=== PATIENT | female | born 1960 | race Caucasian/White ===

== ENCOUNTER 2018-11-28 10:02 | Day surgery (SDC) | payer OTHER ==
[~2018-11-28 10:02] MED LIST: Acetaminophen 500 MG Tab PO ONE; Gabapentin 300 MG Cap PO ONE; Lactated Ringers 1,000 ML IV SCH; Scopolamine 1.5 MG Transdermal Patch TRDERM ONE
[2018-11-28] MEDS ORDERED: Citric Acid/Sodium Citrate Solution 30 ML Cup PO ONE (10:03)
[2018-11-28] MEDS ORDERED: Ondansetron 4 MG/2 ML SDV IVPUSH ONE (10:03)
[2018-11-28] MEDS ORDERED: Propofol 200 MG/20 ML SDV IV ONE (10:03)
[2018-11-28] MEDS ORDERED: ePHEDrine 50 MG/ML SDV IV ONE (10:03)
[2018-11-28] MEDS ORDERED: fentaNYL 100 MCG/2 ML SDV IV ONE (10:03)
[2018-11-28] MEDS ORDERED: Lidocaine 1% PF 2 ML SDV INJECT ONE (10:03)
[2018-11-28] MEDS ORDERED: Ropivacaine 0.5% 5 MG/ML 30 ML SDV INJECT ONE (10:03)
[2018-11-28] MEDS ORDERED: Lactated Ringers 1,000 ML IV ONE (10:03)
[2018-11-28] MEDS ORDERED: Midazolam 1 MG/ML 2 ML SDV IV ONE (10:03)
[2018-11-28] MEDS ORDERED: Famotidine/Normal Saline 20 MG/50 ML BAG IV ONE (10:03)
[2018-11-28] MEDS ORDERED: MEPERIDINE 100 MG/ML IV ONE (10:03)
[2018-11-28] MEDS ORDERED: Ropivacaine 49.25 ML, Ketorolac 30 MG, EPINEPHrine 0.5 MG, cloNIDine 80 MCG, Sodium Chl... INJECT SCH ×5 (11:00)
[2018-11-28] MEDS ORDERED: ceFAZolin 2 GM in Premix Bag 1 BAG IV ONE (11:00)
[2018-11-28] MEDS ORDERED: fentaNYL 100 MCG/2 ML SDV IVPUSH ONE (11:10)
[2018-11-28] MEDS ORDERED: Tranexamic Acid 3,000 MG, Sodium Chloride 0.9% 100 ML IRR ONE ×2 (12:15)
[2018-11-28] MEDS ORDERED: diphenhydrAMINE 50 MG/ML SDV IVPUSH PRN (16:18)
[2018-11-28] MEDS ORDERED: Bisacodyl 5 MG Tab PO PRN (16:18)
[2018-11-28] MEDS ORDERED: Magnesium Hydroxide 400 MG/5 ML Susp 30 ML Cup PO PRN (16:18)
[2018-11-28] MEDS ORDERED: Sennosides 8.6 MG Tab PO PRN (16:18)
[2018-11-28] MEDS ORDERED: Naloxone 0.4 MG/ML SDV IVPUSH PRN (16:18)
[2018-11-28] MEDS ORDERED: Ondansetron 4 MG/2 ML SDV IVPUSH PRN (16:18)
[2018-11-28] MEDS ORDERED: Docusate Sodium 100 MG Cap PO PRN (16:18)
[2018-11-28] MEDS ORDERED: traMADol 50 MG Tab PO PRN (16:18)
[2018-11-28] MEDS ORDERED: Zolpidem 5 MG Tab PO PRN (16:18)
[2018-11-28] MEDS ORDERED: Alum Hydroxide/Mag Hydroxide 15 ML, Lidocaine 2% 15 ML PO ONE ×2 (16:42)
[2018-11-28] MEDS ORDERED: Ketorolac 30 MG/ML SDV IVPUSH SCH (17:00)
--- NOTE | 2018-11-28 17:40 | OR ---
DATE OF OPERATION: 11/28/2018 SURGEON: Tim Elizabeth DO PREOPERATIVE DIAGNOSIS: Left knee primary osteoarthritis. POSTOPERATIVE DIAGNOSIS: Left knee primary osteoarthritis. PROCEDURE: Left knee partial knee arthroplasty. ANESTHESIA: Spinal plus conscious sedation. FLUID: Lactated Ringer's solution. ESTIMATED BLOOD LOSS: 200 mL. COMPLICATIONS: None. SPECIMEN: None. DISCHARGE DISPOSITION: Stable to PACU. INSTRUMENTATION: DePuy [place] partial knee size-4 femur, size-3 tibia, size-3 polyethylene insert. INDICATION: The patient was seen preoperatively in the clinic. She had failed nonoperative treatment in the past. Preoperative imaging confirmed the above- mentioned diagnosis. Risks and benefits of the procedure were explained to the patient. Informed consent was obtained. DETAILS OF PROCEDURE: The patient was seen preoperatively by myself and the Anesthesia staff in the preoperative holding area, where the operating site was marked. She was brought to the operative suite by the Anesthesia staff, where spinal sedation was administered plus conscious sedation. All extremities were found to be well padded. A well-padded tourniquet was placed on the left thigh. The left lower extremity was then prepped and draped in a sterile manner. Time- out was called identifying the correct patient, the correct procedure, the correct site, and that antibiotics had been begun within appropriate period of time. The left lower extremity was exsanguinated. Tourniquet was raised to 300 mmHg and kept up for 38 minutes. At the time of cementing, it was let down. A medial incision was made medial to the superior aspect of the patella down to the medial aspect of the tibial tubercle. Bleeding during the case was controlled with Bovie electrocautery. A medial parapatellar arthrotomy was then made. The infrapatellar fat pad was removed. The anterior portion of the medial meniscus was removed. The medial tibial was skeletonized with the Bovie electrocautery unit. An extramedullary tibial guide was used with 0 to 2 degrees of slope with 2 mm stylus depth. This was pinned into position and then the vertical cut was made in line with the anterior superior iliac spine. The horizontal cut was then made. I then removed the guide and then used an osteotome with the Rj to remove the fragment, which measured a size 3. After this had been performed, I then inserted my 7-mm spacer, which was equal in flexion and extension. I marked the midportion of this in flexion and extension of the distal femur. I then brought out my femur into extension and then placed my distal femoral cutting guide, pinned this into place, and then made my distal femoral cut. After this had been accomplished, I removed my guide again and removed the pins. I then marked the midportion with my spacer and then used a size-4 distal femoral cutting guide. I pinned this into position and made my three distal femoral cuts. I then placed my distal femoral trial component and then placed my spacer, which provided excellent range of motion with stability. I then removed all of my components. I placed my tibial baseplate guide and then used an awl to make my keyhole cut. After this had been accomplished, I checked it with a hockey stick. I then copiously irrigated with saline, applied TXA, and then a dry towel, allowed this to dry. Then, I cemented my components in place, taking great care to make sure that all of my cement was removed posteriorly and then put my final polyethylene component in place. This provided excellent stability throughout range of motion. Range of motion was 0-130 degrees flexion. After this had been accomplished, I then copiously irrigated with saline. I applied Betadine-soaked irrigation and then TXA and then closed the parapatellar arthrotomy with two #5 interrupted Ethibond sutures, followed by #1 STRATAFIX, followed by Betadine irrigation again, followed by #1 STRATAFIX subcutaneously, followed by skin pedro, followed by Betadine-soaked Adaptic, followed by a sterile dressing. The patient was then transferred to the PACU in a stable condition. /[id number] FIDEL/SISSY
[2018-11-28] MEDS: Sodium Chloride 0.9% 10 ML Syringe FLUSH PRN ×2 (20:26→20:33)
[2018-11-28] MEDS: Ketorolac 30 MG/ML SDV IVPUSH SCH (20:28)
[2018-11-29] MEDS: Ketorolac 30 MG/ML SDV IVPUSH SCH (04:13)
[2018-11-29] MEDS: Sodium Chloride 0.9% 10 ML Syringe FLUSH PRN (04:14)
[2018-11-29] MEDS: Acetaminophen/oxyCODONE 325-5 MG Tab PO PRN ×3 (04:15→12:19)
[2018-11-29] MEDS ORDERED: Pantoprazole 40 MG Tab.CR PO SCH (06:00)
--- NOTE | 2018-11-29 08:56 | PCM.SN ---
- Free Text/Narrative Note: ANESTHESIA PAIN SERVICE Date: 11/28/2018 Time: 1637 to 1655 RE: Post Operative Pain Control Pre-Op Dx: Severe DJD Left Knee Post-Op Rx: Left Knee Partial Arthroplasty Procedure: Left Adductor Canal Nerve Block with Ultrasound Guidance The physician requested post operative pain control. Risks / Benefits discussed with the patient including block failure. She agrees and wishes to proceed. This will be done in PACU due to Ultrasound [U/S] availability. Monitors: NIBP, ECG, and SpO2 [see nursing notes for vitals]. Sedation: None [spinal for surgery] She is awake and orientated throughout the procedure. First, I did a preprocedure scan locating the Left Femoral Artery under the Satorius Muscle at a depth of 5 to 6 cm. The area was prepped with a Chlora- Prep swab and allowed to dry. Using U/S guidance, I advanced a 22 G 3.5" pencil point spinal needle X 2 attempts to a good position without problems. With negative aspiration, the first 2 ml's of .5% Naropin tented the muscle and started to surround the artery. No patient complaints noted, so a total of 20 ml's of local was given in divided doses under U/S visualization. Vital signs remained stable. She tolerated this procedure well. See Radiology PAC system for pictures. Thank you for using the service. Gavino Ma CRNA Yoana
[2018-11-29] MEDS ORDERED: Levothyroxine 125 MCG Tab PO SCH (09:00)
[2018-11-29] MEDS ORDERED: Hydrochlorothiazide 25 MG Tab PO SCH (09:00)
[2018-11-29] MEDS ORDERED: Aspirin 325 MG Tab.EC PO SCH (09:00)
--- NOTE | 2018-11-29 11:34 | PCM.DCSUM1 ---
Discharge Summary - Hospital Course HPI Initial Comments: 58 yo female admitted for left pka Diagnosis: Stroke: No - Discharge Data Discharge Date: 11/29/18 Discharge Disposition: Home, Self-Care 01 Condition: Good - Patient Summary/Data Operative Procedure(s) Performed: left pka Complications: none Consults: Consultations 11/28/18 15:00 OT Evaluation and Treatment [CONS] Routine Please Evaluate and Treat. OT Reason for Consult: Strengthening This query below is only for informational purposes and is not editable. Admission Diagnosis/Problem: Arthroplasty of knee PT Evaluation and Treatment [CONS] Routine Please Evaluate and Treat. PT Reason for Consult: Strengthening This query below is only for informational purposes and is not editable. Admission Diagnosis/Problem: Arthroplasty of knee 11/28/18 16:18 Respiratory Care Assess and Treatment [CONS] Routine Comment: Physician Instructions: Post-op Pneumonia Prevention - Patient Instructions Diet: Usual Diet as Tolerated Activity: Apply Ice, As Tolerated, No Strenuous Activities Driving: Do Not Drive Showering/Bathing: May Shower Wound/Incision Care: Keep Operative Site/Wound Site Clean and Dry, Change Dressing Daily Notify Provider of: Fever, Increased Pain, Swelling and Redness, Drainage, Nausea and/or Vomiting - Discharge Plan *PRESCRIPTION DRUG MONITORING PROGRAM REVIEWED*: Yes *COPY OF PRESCRIPTION DRUG MONITORING REPORT IN PATIENT JAKI: No Prescriptions/Med Rec: Acetaminophen/oxyCODONE [Percocet 325-5 MG] 1 tab PO Q6HR #56 tablet Aspirin [Ecotrin] 325 mg PO DAILY #30 tab.ec Home Medications: Home Meds hydroCHLOROthiazide [Hydrochlorothiazide] 25 mg PO DAILY 01/29/14 [History] Levothyroxine [Levothroid] 137 mcg PO DAILY 11/25/18 [History] Vitamin B Complex 1 tab PO DAILY 11/28/18 [History] Acetaminophen/oxyCODONE [Percocet 325-5 MG] 1 tab PO Q6HR #56 tablet 11/29/18 [ Rx] Aspirin [Ecotrin] 325 mg PO DAILY #30 tab.ec 11/29/18 [Rx] Patient Handouts: Total Knee Replacement, Care After, [id number], Fall Prevention in Hospitals, Adult, Community-Acquired Pneumonia, Adult, Venous Thromboembolism Prevention - Discharge Summary/Plan Comment DC Time >30 min.: No - General Info Date of Service: 11/29/18 Functional Status: Reports: Pain Controlled, Tolerating Diet, Ambulating, Urinating - Review of Systems General: Reports: No Symptoms HEENT: Reports: No Symptoms Pulmonary: Reports: No Symptoms Cardiovascular: Reports: No Symptoms Gastrointestinal: Reports: No Symptoms Genitourinary: Reports: No Symptoms Musculoskeletal: Reports: Leg Pain, Joint Pain, Joint Swelling Skin: Reports: No Symptoms Neurological: Reports: No Symptoms Psychiatric: Reports: No Symptoms - Patient Data Vitals - Most Recent: Last Vital Signs Temp 97.7 F 11/29/18 04:00 Pulse 77 11/29/18 04:00 Resp 18 11/29/18 04:00 BP 108/67 11/29/18 04:00 Pulse Ox 100 11/29/18 04:00 Weight - Most Recent: 200 lb I&O - Last 24 hours: Intake & Output 11/28/18 11/29/18 11/29/18 22:59 06:59 14:59 Intake Total 500 200 Output Total 825 550 Balance -325 -350 Lab Results - Last 24 hrs: Laboratory Results - last 24 hr 11/29/18 11/29/18 Range/Units 06:30 06:30 WBC 4.1 L (4.5-12.0) X10-3/uL RBC 3.16 L (3.23-5.20) x10(6)uL Hgb 10.6 L D (11.5-15.5) g/dL Hct 31.9 (30.0-51.3) % MCV 101.1 H (80-96) fL MCH 33.6 (27.7-33.6) pg MCHC 33.3 (32.2-35.4) g/dL RDW 19.7 H (11.5-15.5) % Plt Count 164 (125-369) X10(3)uL MPV 7.9 (7.4-10.4) fL Add Manual Diff Yes Neutrophils % (Manual) 67 (46-82) % Band Neutrophils % 2 (0-6) % Lymphocytes % (Manual) 25 (13-37) % Monocytes % (Manual) 5 (4-12) % Eosinophils % (Manual) 1 (0-5) % Sodium 142 (135-145) mmol/L Potassium 4.1 (3.5-5.3) mmol/L Chloride 104 (100-110) mmol/L Carbon Dioxide 33 H (21-32) mmol/L BUN 14 (7-18) mg/dL Creatinine 0.8 (0.55-1.02) mg/dL Est Cr Clr Drug Dosing 70.01 mL/min Estimated GFR (MDRD) > 60 (>60) BUN/Creatinine Ratio 17.5 (9-20) Glucose 99 (80-116) mg/dL Calcium 8.2 L (8.6-10.2) mg/dL Total Bilirubin 0.7 (0.1-1.3) mg/dL AST 21 (5-25) IU/L ALT 26 (12-36) U/L Alkaline Phosphatase 87 (56-112) IU/L Total Protein 5.9 L (6.0-8.0) g/dL Albumin 3.1 L (3.2-4.6) g/dL Globulin 2.8 g/dL Albumin/Globulin Ratio 1.1 Med Orders - Current: Current Medications Aspirin (Ecotrin) 325 mg PO DAILY [facility] Last Admin: 11/29/18 08:21 Dose: 325 mg Bisacodyl (Dulcolax) 10 mg PO DAILY PRN PRN Reason: Constipation Diphenhydramine HCl (Benadryl) 25 mg IVPUSH Q4H PRN PRN Reason: Itching Docusate Sodium (Colace) 100 mg PO BID PRN PRN Reason: Constipation Hydrochlorothiazide (Hydrochlorothiazide) 25 mg PO DAILY [facility] Last Admin: 11/29/18 08:22 Dose: 25 mg Lactated Ringer's (Ringers, Lactated) 1,000 mls @ 125 mls/hr IV ASDIRECTED [facility] Last Admin: 11/28/18 11:21 Dose: 125 mls/hr Levothyroxine Sodium (Levothroid) 137 mcg PO DAILY@0600 [facility] Last Admin: 11/29/18 05:59 Dose: 137 mcg Magnesium Hydroxide (Milk Of Magnesia) 30 ml PO BID PRN PRN Reason: Constipation Naloxone HCl (Narcan) 0.1 mg IVPUSH ONETIME PRN PRN Reason: Oversedation Ondansetron HCl (Zofran) 4 mg IVPUSH Q4H PRN PRN Reason: Nausea/Vomiting Oxycodone/Acetaminophen (Percocet 325-5 Mg) 2 tab PO Q4H PRN PRN Reason: Pain (moderate 4-6) Last Admin: 11/29/18 08:21 Dose: 2 tab Pantoprazole Sodium (Protonix) 40 mg PO DAILY@0600 [facility] Last Admin: 11/29/18 06:00 Dose: 40 mg Senna (Senna) 8.6 mg PO BID PRN PRN Reason: Constipation Sodium Chloride (Saline Flush) 10 ml FLUSH ASDIRECTED PRN PRN Reason: Keep Vein Open Last Admin: 11/29/18 04:14 Dose: 10 ml Tramadol HCl (Ultram) 100 mg PO Q6H PRN PRN Reason: Pain (mild 1-3) Zolpidem Tartrate (Ambien) 5 mg PO BEDTIME PRN PRN Reason: Sleep Discontinued Medications Acetaminophen (Tylenol Extra Strength) 1,000 mg PO ONETIME ONE Stop: 11/28/18 09:31 Last Admin: 11/28/18 11:28 Dose: 1,000 mg Ropivacaine 49.25 ml/Ketorolac Tromethamine 30 mg/Epinephrine HCl 0.5 mg/ Clonidine HCl 80 mcg/ Sodium Chloride 48.45 ml 0 ml INJECT ASDIRECTED [facility] Last Admin: 11/28/18 15:54 Dose: 100 syringe Tranexamic Acid 3,000 mg/ (Sodium Chloride 100 ml) 0 mg IRR ONETIME ONE Stop: 11/28/18 12:16 Last Admin: 11/28/18 15:41 Dose: 100 irr Al Hydroxide/Mg Hydroxide 15 (ml/ Lidocaine HCl 15 ml) 0 ml PO ONETIME ONE Stop: 11/28/18 16:43 Last Admin: 11/28/18 16:48 Dose: 30 ml Fentanyl (Sublimaze) 100 mcg IVPUSH ONETIME ONE Stop: 11/28/18 11:11 Last Admin: 11/28/18 12:47 Dose: 100 mcg Gabapentin (Neurontin) 300 mg PO ONETIME ONE Stop: 11/28/18 09:31 Last Admin: 11/28/18 11:28 Dose: 300 mg Cefazolin Sodium/Dextrose 2 gm (/ Premix) 50 mls @ 100 mls/hr IV ONETIME ONE Stop: 11/28/18 11:29 Last Admin: 11/28/18 14:32 Dose: 100 mls/hr Ketorolac Tromethamine (Toradol) 30 mg IVPUSH Q8H [facility] Stop: 11/29/18 01:01 Last Admin: 11/28/18 20:18 Dose: Not Given Ketorolac Tromethamine (Toradol) 30 mg IVPUSH Q8H [facility] Stop: 11/29/18 04:01 Last Admin: 11/29/18 04:13 Dose: 30 mg Scopolamine (Transderm-Scop) 1.5 mg TRDERM ONETIME ONE Stop: 11/28/18 09:31 Last Admin: 11/28/18 11:29 Dose: 1.5 mg - Exam General: Reports: Alert, Oriented, Cooperative, No Acute Distress HEENT: Reports: Pupils Equal, Pupils Reactive, EOMI, Mucous Membr. Moist/[place] Neck: Reports: Supple, Trachea Midline Lungs: Reports: Normal Respiratory Effort GI/Abdominal Exam: No Distention Extremities: Joint Swelling, Leg Pain Skin: Reports: Warm, Dry, Intact Wound/Incisions: Reports: Healing Well, Dressing Dry and Intact, No Drainage
== END 2018-11-29 13:30 | disposition home or self-care (01) ==
LOC: FB.SDS 10:02 → FB.MS 17:35 → FB.SDS 11-29 13:30
PROVIDERS: ATTEND Orthopaedic Surgery
DX: M17.12 Unilateral primary osteoarthritis, left knee (principal); I10 Essential (primary) hypertension; E78.5 Hyperlipidemia, unspecified; K21.9 Gastro-esophageal reflux disease without esophagitis; E03.9 Hypothyroidism, unspecified; Z79.82 Long term (current) use of aspirin; Z79.890 Hormone replacement therapy; Z79.899 Other long term (current) drug therapy
CPT/HCPCS: 36415; 73560-LT; 80053; 85025; 86850; 86900; 86901; 97161-GP; 97165-GO; A9270-GY; J0171; J0690; J0735; J1885; J2795; J3010; J7030; J7050; J7120

== ENCOUNTER 2020-08-28 20:20 | Day surgery (SDC) | payer OTHER ==
[2020-08-28] MEDS ORDERED: Ketorolac 30 MG/ML SDV IVPUSH ONE (20:47)
[2020-08-28] MEDS: Sodium Chloride 0.9% 10 ML Syringe FLUSH PRN ×4 (20:50→22:02)
[2020-08-28] MEDS ORDERED: fentaNYL 100 MCG/2 ML SDV IVPUSH ONE ×2 (21:01→21:57)
--- NOTE | 2020-08-28 21:14 | EDM.PDOC ---
ED HPI GENERAL MEDICAL PROBLEM - General Chief Complaint: General Stated Complaint: GROIN PAIN Time Seen by Provider: 08/28/20 21:12 Source of Information: Reports: Patient History Limitations: Reports: No Limitations - History of Present Illness INITIAL COMMENTS - FREE TEXT/NARRATIVE: Vickie has a had a suprapubic mass for 1 week,initially painless,but started with severe pain a few hours ago. Nothing helps. No other systemic symptoms.,s Right Groin Pain Score (Numeric/FACES): 10 - Related Data Allergies Allergy/AdvReac Type Severity Reaction Status Date / Time celecoxib [From Celebrex] Allergy Nausea Verified 11/25/18 14:00 codeine Allergy Cannot Verified 11/25/18 11:49 Remember metoclopramide HCl Allergy Cannot Verified 11/25/18 11:49 [From Reglan] Remember morphine Allergy Cannot Verified 11/25/18 11:49 Remember nitrofurantoin Allergy Cannot Verified 11/25/18 11:49 [From Macrobid] Remember nitrofurantoin Allergy Cannot Verified 01/29/14 18:08 macrocrystalline Remember [From Macrobid] VITAMIN MIXTURE Allergy Unknown Cannot Uncoded 11/25/18 11:50 Remember Home Meds: Home Meds hydroCHLOROthiazide [Hydrochlorothiazide] 25 mg PO DAILY 01/29/14 [History] Levothyroxine [Levothroid] 137 mcg PO DAILY 11/25/18 [History] Vitamin B Complex 1 tab PO DAILY 11/28/18 [History] Acetaminophen/oxyCODONE [Percocet 325-5 MG] 1 tab PO Q6HR #56 tablet 11/29/18 [Rx] Aspirin [Ecotrin EC] 325 mg PO DAILY #30 tab.ec 11/29/18 [Rx] Past Medical History HEENT History: Reports: None Cardiovascular History: Reports: High Cholesterol, Hypertension Respiratory History: Reports: None Gastrointestinal History: Reports: GERD, Irritable Bowel Syndrome Other Gastrointestinal History: ABDOMINAL PAIN; CONSTIPATION Genitourinary History: Reports: None VISE HAND History: Reports: Musculoskeletal History: Reports: Arthritis, Osteoarthritis Other Musculoskeletal History: LEFT TIBILALIS POSTERIOR TENDINITIS; TEAR OF DELTOID LIGAMENT OF LEFT ANKLE Neurological History: Reports: None Psychiatric History: Reports: None Endocrine/Metabolic History: Reports: Hypothyroidism Hematologic History: Reports: None Immunologic History: Reports: None Oncologic (Cancer) History: Reports: None Dermatologic History: Reports: None - Past Surgical History Head Surgeries/Procedures: Reports: None HEENT Surgical History: Reports: None GI Surgical History: Reports: Appendectomy, Cholecystectomy, Colonoscopy, EGD Musculoskeletal Surgical History: Reports: Knee Replacement Social & Family History - Caffeine Use Caffeine Use: Reports: Soda ED ROS GENERAL - Review of Systems Review Of Systems: Comprehensive ROS is negative, except as noted in HPI. ED EXAM, GENERAL - Physical Exam Exam: See Below Exam Limited By: No Limitations General Appearance: Alert Respiratory/Chest: No Respiratory Distress GI/Abdominal: Normal Bowel Sounds, Tender (Suporapubic mass) Course - Vital Signs Text/Narrative:: CT showed an Inguinal Hernia with some obstruction Last Recorded V/S: Last Vital Signs Temp 97.6 F 08/28/20 21:15 Pulse 66 08/28/20 22:03 Resp 16 08/28/20 22:03 BP 127/59 L 08/28/20 22:03 Pulse Ox 100 08/28/20 22:03 - Orders/Labs/Meds Orders: Active Orders 24 hr Category Date Time Status Abdomen Pelvis w Cont [CT] Stat Exams 08/28/20 20:48 Taken Sodium Chloride 0.9% [Saline Flush] Med 08/28/20 20:47 Active 10 ml FLUSH ASDIRECTED PRN Peripheral IV Insertion Adult [OM.PC] Routine Oth 08/28/20 20:47 Ordered Medication Orders Sodium Chloride (Saline Flush) 10 ml FLUSH ASDIRECTED PRN PRN Reason: Keep Vein Open Last Admin: 08/28/20 22:02 Dose: 10 ml Documented by: Admin: 08/28/20 21:03 Dose: 10 ml Documented by: Admin: 08/28/20 20:55 Dose: 10 ml Documented by: Admin: 08/28/20 20:50 Dose: 10 ml Documented by: JEFFREY Labs: Laboratory Tests 08/28/20 08/28/20 08/28/20 Range/Units 21:03 21:03 21:03 WBC 4.0 (3.0-10.3) x10-3/uL RBC 4.46 (3.60-5.20) x10(6)uL Hgb 13.2 (11.4-15.5) g/dL Hct 39.2 (34.2-48.2) % MCV 87.8 (76.7-100.5) fL MCH 29.5 (23.9-33.9) pg MCHC 33.6 (31.9-34.8) g/dL RDW 13.8 (12.3-16.5) % Plt Count 240 (151-488) x10(3)uL MPV 8.5 (7.1-12.4) fL Neut % (Auto) 58.3 (30.8-76.2) % Lymph % (Auto) 31.8 (18.4-52.1) % [place] % (Auto) 7.6 (4.4-15.7) % Eos % (Auto) 1.9 (0.6-8.1) % Baso % (Auto) 0.4 (0.2-1.5) % Neut # (Auto) 2.3 (1.5-6.3) x10-3/uL Lymph # (Auto) 1.3 (1.0-4.4) x10-3/uL [place] # (Auto) 0.3 (0.3-1.0) x10-3/uL Eos # (Auto) 0.1 (0.0-0.8) x10-3/uL Baso # (Auto) 0.0 (0.0-0.1) x10-3/uL Sodium 140 (135-145) mmol/L Potassium 3.3 L (3.5-5.3) mmol/L Chloride 101 (100-110) mmol/L Carbon Dioxide 31 (21-32) mmol/L BUN 16 (7-18) mg/dL Creatinine 0.8 (0.55-1.02) mg/dL Est Cr Clr Drug Dosing 65.61 mL/min Estimated GFR (MDRD) > 60 (>60) BUN/Creatinine Ratio 20.0 (9-20) Glucose 106 (80-116) mg/dL Calcium 9.3 (8.6-10.2) mg/dL C-Reactive Protein 0.2 L (0.5-0.9) mg/dL Meds: Medications Generic Name Dose Route Start Last Admin Trade Name Freq PRN Reason Stop Dose Admin Sodium Chloride 10 ml 08/28/20 20:47 08/28/20 22:02 Saline Flush FLUSH 10 ml ASDIRECTED PRN Administration Keep Vein Open Discontinued Medications Generic Name Dose Route Start Last Admin Trade Name Nellie PRN Reason Stop Dose Admin Fentanyl 100 mcg 08/28/20 21:01 08/28/20 21:03 Sublimaze IVPUSH 08/28/20 21:02 100 mcg ONETIME ONE Administration Fentanyl 100 mcg 08/28/20 21:57 08/28/20 22:02 Sublimaze IVPUSH 08/28/20 21:58 100 mcg ONETIME ONE Administration Iopamidol 100 ml 08/28/20 21:35 08/28/20 21:54 Isovue-370 (76%) IV 08/28/20 21:36 100 ml . DIRECTED ONE Administration Ketorolac Tromethamine 30 mg 08/28/20 20:47 08/28/20 20:54 Toradol IVPUSH 08/28/20 20:48 30 mg ONETIME ONE Administration Departure - Departure Time of Disposition: 23:01 Disposition: Still A Patient 30 Clinical Impression: Suprapubic pain - Discharge Information Referrals: Loraine Strickland [employer]OC[employer]CHANDISE PLANNER [Primary Care Provider] - Forms: ED Department Discharge Sepsis Event Note (ED) - Evaluation Sepsis Screening Result: No Definite Risk - Focused Exam Vital Signs: Vital Signs Temp Pulse Resp BP Pulse Ox 08/28/20 22:03 66 16 127/59 L 100 08/28/20 21:15 97.6 F 60 16 114/44 L 100 08/28/20 20:27 97.4 F 58 L 139/72 - Problem List & Annotations (1) Inguinal hernia of right side with obstruction SNOMED Code(s): 410018250 Code(s): K40.30 - UNIL INGUINAL HERNIA, W OBST, W/O GANGR, NOT SPCF RECUR Status: Acute Current Visit: Yes (2) Suprapubic abscess SNOMED Code(s): 90651362766002630 Code(s): L02.219 - CUTANEOUS ABSCESS OF TRUNK, UNSPECIFIED Status: Acute Current Visit: Yes (3) Suprapubic pain SNOMED Code(s): 739137720 Code(s): R10.2 - PELVIC AND PERINEAL PAIN Status: Acute Current Visit: Yes - Problem List Review Problem List Initiated/Reviewed/Updated: Yes - My Orders Last 24 Hours: My Active Orders 08/28/20 20:47 Sodium Chloride 0.9% [Saline Flush] 10 ml FLUSH ASDIRECTED PRN Peripheral IV Insertion Adult [OM.PC] Routine 08/28/20 20:48 Abdomen Pelvis w Cont [CT] Stat - Assessment/Plan Last 24 Hours: My Active Orders 08/28/20 20:47 Sodium Chloride 0.9% [Saline Flush] 10 ml FLUSH ASDIRECTED PRN Peripheral IV Insertion Adult [OM.PC] Routine 08/28/20 20:48 Abdomen Pelvis w Cont [CT] Stat Plan: Inguinal Hernia.I called Dr De Jesus
[2020-08-28] MEDS ORDERED: Iopamidol 755 Mg/ML 100 ML Bottle IV ONE (21:35)
[2020-08-28] MEDS ORDERED: Acetaminophen/oxyCODONE 325-5 MG Tab PO ONE (23:23)
[2020-08-28] MEDS ORDERED: Lidocaine 2% 5 ML SDV IV ONE (23:23)
[2020-08-28] MEDS ORDERED: Succinylcholine 200 MG/10 ML MDV IV ONE (23:23)
[2020-08-28] MEDS ORDERED: HYDROmorphone 2 MG/ML SDV IV ONE (23:23)
[2020-08-28] MEDS ORDERED: Acetaminophen 1,000 MG/100 ML Infusion Bottle Premix IV ONE (23:23)
[2020-08-28] MEDS ORDERED: Glycopyrrolate 0.2 MG/ML 5 ML MDV IV ONE (23:23)
[2020-08-28] MEDS ORDERED: Rocuronium 50 MG/5 ML Vial IV ONE (23:23)
[2020-08-28] MEDS ORDERED: ceFAZolin 1 GM Vial IV ONE (23:23)
[2020-08-28] MEDS ORDERED: Lactated Ringers 1,000 ML IV ONE (23:23)
[2020-08-28] MEDS ORDERED: Ondansetron 4 MG/2 ML SDV IVPUSH ONE (23:23)
[2020-08-28] MEDS ORDERED: Dexamethasone 4 MG/ML 5 ML MDV IVPUSH ONE (23:23)
[2020-08-28] MEDS ORDERED: fentaNYL 100 MCG/2 ML SDV IV ONE (23:23)
[2020-08-28] MEDS ORDERED: Neostigmine Methylsulfate 10 MG/10 ML MDV IVPUSH ONE (23:23)
[2020-08-28] MEDS ORDERED: Propofol 200 MG/20 ML SDV IV ONE (23:23)
[2020-08-28] MEDS ORDERED: Midazolam 1 MG/ML 2 ML SDV IV ONE ×2 (23:23)
[2020-08-28] MEDS ORDERED: Lactated Ringers 1,000 ML IV SCH (23:50)
[2020-08-29] MEDS ORDERED: Bupivacaine 0.5% 30 ML SDV INJECT ONE (00:53)
[2020-08-29] MEDS ORDERED: ceFAZolin 1 GM Vial ONE (00:54)
--- NOTE | 2020-08-29 01:23 | HP ---
ADMISSION DATE: 08/28/2020 HISTORY OF PRESENT ILLNESS: This 60-[facility] sudden onset of right groin pain. This developed severely at approximately 1900 hours and persisted, so she presented here. She was noted to have tenderness in the right groin along with palpable mass. A CT scan was performed which showed evidence of a right inguinal hernia with small bowel incarcerated in it. The patient had somewhat similar episode about a week ago, but the pain went away after 1 to 2 hours. She has not known of a definite hernia in the groin before. She did note that she was physically active today, although does not recall lifting anything unusually heavy. She has had some nausea associated with this pain, but no vomiting. PAST MEDICAL HISTORY: Shows previous bilateral knee replacements as well as left ankle surgery. She has also had previous cholecystectomy. CURRENT MEDICATIONS: Include; 1. Levothyroxine. 2. Daily aspirin. ALLERGIES: She lists allergies of Celebrex, codeine, Reglan, morphine, and nitrofurantoin. SOCIAL HISTORY: She does not smoke. The patient notes that the patient is and lives in the [facility]. FAMILY HISTORY: Negative for known anesthetic complications or bleeding disorders. REVIEW OF SYSTEMS: Identifies that the patient has recently been feeling well. She denies any symptoms of headache, cough, sore throat, or change in taste. She has been dieting for the past several months and states that she has lost 60 pounds as a result of this. This was done to relieve pressure on her lower extremity joints and she also states that she has been doing a lot of walking on a regular basis over the past few months. Bowel function is generally satisfactory. She has not had any chest pain or palpitations. She does have some chronic swelling in the left ankle, but no recent change in this. PHYSICAL EXAMINATION: VITAL SIGNS: Weight is 172 pounds, temperature is 97.6, pulse 66, blood pressure is 127/59. GENERAL: The patient is alert, adult female. She is in no acute distress, although does note significant pain in the right groin. HEENT: Her head is normocephalic. There is no scleral icterus. No cervical masses or cervical lymphadenopathy is noted. HEART: Regular without murmur. LUNGS: Clear. Breath sounds are equal. There is no wheezing. ABDOMEN: Currently soft. There is no palpable mass in the abdomen. No abdominal tenderness or distention is noted. No hepatic or splenic enlargement noted. In the right groin, there is noted medially just near the pubic tubercle, a soft tissue mass which is small to medium size. This is exquisitely tender. No masses noted in the left groin. EXTREMITIES: No calf induration or tenderness. There is 1+ left ankle edema. NEUROLOGIC: The patient is alert. Does not demonstrate any lateralizing weakness. IMPRESSION: 1. Incarcerated right inguinal hernia. 2. History of hypothyroidism. RECOMMENDATIONS: Advised proceeding with urgent right groin exploration with reduction and repair of right inguinal hernia. Reviewed with the patient the proposed operative procedure. Risks and possible complications discussed, possible bowel involvement also reviewed. The patient's questions were answered. She agrees to proceed. This will be scheduled on an urgent basis at this time. /[id number] NINI/SISSY CARVAJAL
[2020-08-29] MEDS ORDERED: fentaNYL 100 MCG/2 ML SDV IVPUSH PRN (01:47)
[2020-08-29] MEDS ORDERED: Ondansetron 4 MG/2 ML SDV IVPUSH PRN (01:47)
--- NOTE | 2020-08-29 01:47 | PCM.OPNOTE ---
- General Post-Op/Procedure Note Date of Surgery/Procedure: 08/29/20 Operative Procedure(s): Repair Incarcerated Right Inguinal Hernia with Mesh Findings: Moderate sized incarcerated direct right inguinal hernia. Bowel appeared reduced upon inguinal exploration. Floor of inguinal canal otherwise intact. Pre Op Diagnosis: Incarerated Right Inguinal Hernia Post-Op Diagnosis: Same Anesthesia Technique: General ET Tube Primary Surgeon: Ben Renee Pathology: none EBL in mLs: 20 Complications: None Condition: Good
[2020-08-29] MEDS ORDERED: Acetaminophen/oxyCODONE 325-5 MG Tab PO PRN (01:53)
[2020-08-29] MEDS ORDERED: Lactated Ringers 1,000 ML IV SCH (02:00)
[2020-08-29] MEDS ORDERED: Aluminum Hydroxide/Magnesium Hydroxide Susp 30 ML Cup ONE (02:33)
[2020-08-29] MEDS ORDERED: Lidocaine 2% Viscous Solution 15 ML Cup ONE (02:33)
--- NOTE | 2020-08-29 02:38 | OR ---
DATE OF OPERATION: 08/29/2020 SURGEON: Ben Renee MD PREOPERATIVE DIAGNOSIS: Incarcerated right inguinal hernia. POSTOPERATIVE DIAGNOSIS: Incarcerated right inguinal hernia. OPERATION PERFORMED: Repair of incarcerated right inguinal hernia. INDICATIONS FOR SURGERY: This 60-year-old female presented to the emergency room with severe pain and a palpable mass in the right groin. CT scan identified a right inguinal hernia with a loop of small intestine incarcerated within it. She is urgently taken to the operating room for repair. FINDINGS: In the right groin, the patient had a moderate-sized direct inguinal hernia. The bowel appeared to have reduced with the relaxation of anesthesia. The hernia sac wall was somewhat thickened and it was felt prudent to simply reduce the hernia rather than open the hernia sac so that the contents of the hernia were not visualized. The remainder of the floor of the inguinal canal appeared secure. There was no indirect component of the hernia. PROCEDURE IN DETAIL: The patient was taken to the operating room. She was given general endotracheal anesthesia and the right groin was sterilely prepped and draped. A linear right groin incision was made, carried down to the external oblique fascia which was incised to open the external ring. The ilioinguinal nerve was identified and carefully preserved. Exploration of the right inguinal canal was carried out and the round ligament is identified and it is clamped proximally and distally and removed with 0 Vicryl ties being used to control vascular pedicles. Further exploration in the right groin identified the direct hernia sac. This was isolated down to its neck and the remainder of the floor of the inguinal canal examined. Careful palpation of the hernia sac revealed it to be without any bowel contents, but the sac had a somewhat thickened wall, and in order to not cause any injury to other structures such as bladder, the hernia sac is not opened, but simply completely reduced. The defect in the floor of the inguinal canal is then closed with a [id number] 0 Vicryl suture. The entire floor of the inguinal canal was then reinforced by securing a large size keyhole-shaped piece of polypropylene mesh in position over Hesselbach's triangle. The inferior edge of the mesh was secured to the Maurice's ligament medial to the femoral vessels and the shelving portion of inguinal ligament anterior to these vessels with interrupted 0 Prolene. The superior edge of the mesh was secured down to the internal oblique fascia near its fusion with the external oblique fascia also with interrupted 0 Prolene. The ilioinguinal nerve is passed through the keyhole defect and the tails of the mesh were secured to each other with 0 prolene, recreating the internal ring. The tails of the mesh were also trimmed and laid into the space between the internal and external oblique fascia lateral to the internal ring. This created a secure reinforcement of the floor of the inguinal canal. The wound was copiously irrigated with Ancef and saline solution, which had also been used to soak the mesh prior to its placement. External oblique fascial edges were then reapproximated with running 2-0 Vicryl recreating the external ring. The wound was infiltrated with Marcaine and closure was completed by approximating the Madelin's fascia with interrupted 4-0 Vicryl and skin with running 4-0 Vicryl subcuticular stitch. Benzoin and Steri-Strips were applied followed by antibiotic ointment and sterile dressing. The patient was then awakened, extubated, and taken from the operating room in satisfactory condition. ESTIMATED BLOOD LOSS: 20 mL. COMPLICATIONS: None. PROGNOSIS: Good. /[id number] NINI/SISSY
[2020-08-29] MEDS ORDERED: Alum Hydroxide/Mag Hydroxide 15 ML, Lidocaine 2% 15 ML PO ONE ×2 (02:39)
[2020-08-29] MEDS: Aluminum Hydroxide/Magnesium Hydroxide Susp 30 ML Cup PO PRN ×2 (07:38→12:18)
--- NOTE | 2020-08-29 11:17 | PCM.SURGPN ---
- General Info Date of Service: 08/29/20 Date of Surgery/Procedure: 08/29/20 POD#: 0 Post-Op Diagnosis: Incarcerated Right Inguinal Hernia Admission Diagnosis/Problem: Incarcerated right inguinal hernia Functional Status: Reports: Pain Controlled (Has minimal pain at surgical site) - Review of Systems General: Denies: Fever, Chills HEENT: Reports: No Symptoms Pulmonary: Reports: No Symptoms Cardiovascular: Reports: No Symptoms Gastrointestinal: Reports: Other (Has had some epigastric pain post op which she states happens to her after every surgery. This was relieved by Maalox) Genitourinary: Reports: No Symptoms Musculoskeletal: Denies: Leg Pain - Patient Data Vitals - Most Recent: Last Vital Signs Temp 97.5 F 08/29/20 07:36 Pulse 57 L 08/29/20 07:36 Resp 16 08/29/20 07:36 BP 104/56 L 08/29/20 07:36 Pulse Ox 98 08/29/20 07:36 Weight - Most Recent: 177 lb I&O - Last 24 Hours: Intake & Output 08/28/20 08/29/20 08/29/20 22:59 06:59 14:59 Intake Total 650 Balance 650 Lab Results Last 24 Hrs: Laboratory Results - last 24 hr 08/28/20 08/28/20 08/28/20 Range/Units 21:03 21:03 21:03 WBC 4.0 (3.0-10.3) x10-3/uL RBC 4.46 (3.60-5.20) x10(6)uL Hgb 13.2 (11.4-15.5) g/dL Hct 39.2 (34.2-48.2) % MCV 87.8 (76.7-100.5) fL MCH 29.5 (23.9-33.9) pg MCHC 33.6 (31.9-34.8) g/dL RDW 13.8 (12.3-16.5) % Plt Count 240 (151-488) x10(3)uL MPV 8.5 (7.1-12.4) fL Neut % (Auto) 58.3 (30.8-76.2) % Lymph % (Auto) 31.8 (18.4-52.1) % [place] % (Auto) 7.6 (4.4-15.7) % Eos % (Auto) 1.9 (0.6-8.1) % Baso % (Auto) 0.4 (0.2-1.5) % Neut # (Auto) 2.3 (1.5-6.3) x10-3/uL Lymph # (Auto) 1.3 (1.0-4.4) x10-3/uL [place] # (Auto) 0.3 (0.3-1.0) x10-3/uL Eos # (Auto) 0.1 (0.0-0.8) x10-3/uL Baso # (Auto) 0.0 (0.0-0.1) x10-3/uL Sodium 140 (135-145) mmol/L Potassium 3.3 L (3.5-5.3) mmol/L Chloride 101 (100-110) mmol/L Carbon Dioxide 31 (21-32) mmol/L BUN 16 (7-18) mg/dL Creatinine 0.8 (0.55-1.02) mg/dL Est Cr Clr Drug Dosing 65.61 mL/min Estimated GFR (MDRD) > 60 (>60) BUN/Creatinine Ratio 20.0 (9-20) Glucose 106 (80-116) mg/dL Calcium 9.3 (8.6-10.2) mg/dL C-Reactive Protein 0.2 L (0.5-0.9) mg/dL SARS-CoV-2 RNA (SHEY) (NEGATIVE) 08/28/20 Range/Units 23:24 WBC (3.0-10.3) x10-3/uL RBC (3.60-5.20) x10(6)uL Hgb (11.4-15.5) g/dL Hct (34.2-48.2) % MCV (76.7-100.5) fL MCH (23.9-33.9) pg MCHC (31.9-34.8) g/dL RDW (12.3-16.5) % Plt Count (151-488) x10(3)uL MPV (7.1-12.4) fL Neut % (Auto) (30.8-76.2) % Lymph % (Auto) (18.4-52.1) % [place] % (Auto) (4.4-15.7) % Eos % (Auto) (0.6-8.1) % Baso % (Auto) (0.2-1.5) % Neut # (Auto) (1.5-6.3) x10-3/uL Lymph # (Auto) (1.0-4.4) x10-3/uL [place] # (Auto) (0.3-1.0) x10-3/uL Eos # (Auto) (0.0-0.8) x10-3/uL Baso # (Auto) (0.0-0.1) x10-3/uL Sodium (135-145) mmol/L Potassium (3.5-5.3) mmol/L Chloride (100-110) mmol/L Carbon Dioxide (21-32) mmol/L BUN (7-18) mg/dL Creatinine (0.55-1.02) mg/dL Est Cr Clr Drug Dosing mL/min Estimated GFR (MDRD) (>60) BUN/Creatinine Ratio (9-20) Glucose (80-116) mg/dL Calcium (8.6-10.2) mg/dL C-Reactive Protein (0.5-0.9) mg/dL SARS-CoV-2 RNA (SHEY) Negative (NEGATIVE) Med Orders - Current: Current Medications Al Hydroxide/Mg Hydroxide (Mag-Al Susp) 30 ml PO Q2H PRN PRN Reason: Nausea Last Admin: 08/29/20 07:38 Dose: 30 ml Documented by: Fentanyl (Sublimaze) 50 mcg IVPUSH Q1H PRN PRN Reason: Pain (severe 7-10) Lactated Ringer's (Ringers, Lactated) 1,000 mls @ 125 mls/hr IV ASDIRECTED [facility] Last Admin: 08/28/20 23:50 Dose: 125 mls/hr Documented by: Lactated Ringer's (Ringers, Lactated) 1,000 mls @ 100 mls/hr IV ASDIRECTED BATOOL Last Admin: 08/29/20 06:06 Dose: 100 mls/hr Documented by: Levothyroxine Sodium (Levothroid) 137 mcg PO DAILY BATOOL Ondansetron HCl (Zofran) 4 mg IVPUSH Q6H PRN PRN Reason: Nausea/Vomiting Oxycodone/Acetaminophen (Percocet 325-5 Mg) 1 tab PO Q4H PRN PRN Reason: Pain Sodium Chloride (Saline Flush) 10 ml FLUSH ASDIRECTED PRN PRN Reason: Keep Vein Open Last Admin: 08/28/20 22:02 Dose: 10 ml Documented by: Discontinued Medications Al Hydroxide/Mg Hydroxide (Mag-Al Susp) Confirm Administered Dose 30 ml .ROUTE .STK-MED ONE Stop: 08/29/20 02:34 Last Admin: 08/29/20 02:47 Dose: Not Given Documented by: Bupivacaine HCl (Marcaine 0.5%) 30 ml INJECT .STK-MED ONE Stop: 08/29/20 00:54 Last Admin: 08/29/20 00:53 Dose: 30 ml Documented by: Cefazolin Sodium (Ancef) 1 gm .XX .STK-MED ONE Stop: 08/29/20 00:55 Last Admin: 08/29/20 00:54 Dose: 1 gm Documented by: Al Hydroxide/Mg Hydroxide 15 (ml/ Lidocaine HCl 15 ml) 0 ml PO ONETIME ONE Stop: 08/29/20 02:40 Last Admin: 08/29/20 07:09 Dose: Not Given Documented by: Fentanyl (Sublimaze) 100 mcg IVPUSH ONETIME ONE Stop: 08/28/20 21:02 Last Admin: 08/28/20 21:03 Dose: 100 mcg Documented by: Fentanyl (Sublimaze) 100 mcg IVPUSH ONETIME ONE Stop: 08/28/20 21:58 Last Admin: 08/28/20 22:02 Dose: 100 mcg Documented by: Iopamidol (Isovue-370 (76%)) 100 ml IV . DIRECTED ONE Stop: 08/28/20 21:36 Last Admin: 08/28/20 21:54 Dose: 100 ml Documented by: Ketorolac Tromethamine (Toradol) 30 mg IVPUSH ONETIME ONE Stop: 08/28/20 20:48 Last Admin: 08/28/20 20:54 Dose: 30 mg Documented by: Lidocaine HCl (Xylocaine 2% Viscous) Confirm Administered Dose 15 ml .ROUTE .STK-MED ONE Stop: 08/29/20 02:34 Last Admin: 08/29/20 02:47 Dose: Not Given Documented by: - Exam Wound/Incisions: Healing Well, Other (Skin edges clean and well approximated, Minimal drainage). No: Erythema General: Alert, Oriented Lungs: Normal Respiratory Effort GI/Abdominal Exam: Soft, Non-Tender Sepsis Event Note - Evaluation Sepsis Screening Result: No Definite Risk - Focused Exam Vital Signs: Vital Signs Temp Pulse Resp BP Pulse Ox 08/29/20 07:36 97.5 F 57 L 16 104/56 L 98 08/29/20 04:35 56 L 16 109/52 L 99 08/29/20 04:10 98 F 56 L 17 112/52 L 98 08/29/20 03:40 56 L 16 114/52 L 97 08/29/20 03:25 56 L 16 116/56 L 96 08/29/20 03:10 54 L 16 113/52 L 96 08/29/20 02:55 98 F 53 L 16 112/56 L 99 08/29/20 02:48 12 115/54 L 100 08/29/20 02:39 11 L 111/47 L 100 08/29/20 02:31 15 102/52 L 100 08/29/20 02:21 19 126/65 100 08/29/20 02:05 17 120/78 100 08/29/20 01:59 97.5 F 18 119/67 100 08/28/20 23:41 97.9 F 47 L 18 149/69 H 100 - Problem List Review Problem List Initiated/Reviewed/Updated: Yes - My Orders Last 24 Hours: Active Orders 24 hr Category Date Time Status Patient Status [ADT] Routine ADT 08/29/20 01:47 Active Ambulate [RC] ASDIRECTED Care 08/29/20 01:47 Active Oxygen Therapy [RC] PRN Care 08/29/20 01:47 Active RT Incentive Spirometry [RC] Q1HWA Care 08/29/20 01:47 Active Vital Signs [RC] PER UNIT ROUTINE Care 08/29/20 01:47 Active Full Liquid Diet [DIET] Diet 08/29/20 Breakfast Ordered Abdomen Pelvis w Cont [CT] Stat Exams 08/28/20 20:48 Taken Acetaminophen/oxyCODONE [Percocet 325-5 MG] Med 08/29/20 01:53 Active 1 tab PO Q4H PRN Alum Hydroxide/Mag Hydroxide [Mag-Al Susp] Med 08/29/20 07:06 Active 30 ml PO Q2H PRN Lactated Ringers [Ringers, Lactated] 1,000 ml Med 08/28/20 23:50 Active IV ASDIRECTED Lactated Ringers [Ringers, Lactated] 1,000 ml Med 08/29/20 02:00 Active IV ASDIRECTED Levothyroxine [Levothroid] Med 08/29/20 09:00 Active 137 mcg PO DAILY Ondansetron [Zofran] Med 08/29/20 01:47 Active 4 mg IVPUSH Q6H PRN Sodium Chloride 0.9% [Saline Flush] Med 08/28/20 20:47 Active 10 ml FLUSH ASDIRECTED PRN fentaNYL [Sublimaze] Med 08/29/20 01:47 Active 50 mcg IVPUSH Q1H PRN Peripheral IV Insertion Adult [OM.PC] Routine Oth 08/28/20 20:47 Ordered Resuscitation Status Routine Resus Stat 08/29/20 01:47 Ordered Medication Orders Al Hydroxide/Mg Hydroxide (Mag-Al Susp) 30 ml PO Q2H PRN PRN Reason: Nausea Last Admin: 08/29/20 07:38 Dose: 30 ml Documented by: VIVIANE Fentanyl (Sublimaze) 50 mcg IVPUSH Q1H PRN PRN Reason: Pain (severe 7-10) Lactated Ringer's (Ringers, Lactated) 1,000 mls @ 125 mls/hr IV ASDIRECTED [facility] Last Admin: 08/28/20 23:50 Dose: 125 mls/hr Documented by: JARVIS Lactated Ringer's (Ringers, Lactated) 1,000 mls @ 100 mls/hr IV ASDIRECTED [facility] Last Admin: 08/29/20 06:06 Dose: 100 mls/hr Documented by: JOHAN Levothyroxine Sodium (Levothroid) 137 mcg PO DAILY [facility] Ondansetron HCl (Zofran) 4 mg IVPUSH Q6H PRN PRN Reason: Nausea/Vomiting Oxycodone/Acetaminophen (Percocet 325-5 Mg) 1 tab PO Q4H PRN PRN Reason: Pain Sodium Chloride (Saline Flush) 10 ml FLUSH ASDIRECTED PRN PRN Reason: Keep Vein Open Last Admin: 08/28/20 22:02 Dose: 10 ml Documented by: Admin: 08/28/20 21:03 Dose: 10 ml Documented by: Admin: 08/28/20 20:55 Dose: 10 ml Documented by: Admin: 08/28/20 20:50 Dose: 10 ml Documented by: JEFFREY - Assessment Assessment (Free Text/Narrative):: Doing well after repair of incarcerated inguinal hernia No indication of intestinal injury after surgery - Plan Plan (Free Text/Narrative):: Discharge Follow up with [facility] in 6 days Rx Percocet for pain Light diet until returned to normal
== END 2020-08-29 12:20 | disposition home or self-care (01) ==
LOC: FB.ED 20:20 → FB.SDS 23:22 → FB.MS 08-29 02:37 → FB.SDS 08-29 12:20
PROVIDERS: ATTEND Surgery
DX: K40.30 Unilateral inguinal hernia, with obstruction, without gangrene, not specified as recurrent (principal); I10 Essential (primary) hypertension; E78.00 Pure hypercholesterolemia, unspecified; Z01.812 Encounter for preprocedural laboratory examination; Z20.828 Contact with and (suspected) exposure to other viral communicable diseases; Z90.49 Acquired absence of other specified parts of digestive tract; E03.9 Hypothyroidism, unspecified; Z88.5 Allergy status to narcotic agent; Z88.8 Allergy status to other drugs, medicaments and biological substances
CPT/HCPCS: 00830; 36415; 49507; 74177; 80048; 85025; 86140; 87635; 94150; 96374; 96375; 96376; 99284; A9270; C1781; J0131; J0330; J0690; J1100; J1170; J1885; J2001; J2250; J2405; J2704; J2710; J3010; J3490; J7120; Q9967; 93005; U0002